=== PATIENT | female | born 1950 | race Caucasian/White ===

== ENCOUNTER 2020-03-09 13:57 | Outpatient (CLI) | payer MEDICARE, SELFPAY ==
--- NOTE | 2020-03-09 14:04 | XR_ITS ---
WS: [id number] SCREENING DEXA SCAN [facility] CLINICAL INFORMATION: OSTEPOROSIS COMPARISON: FINDINGS: The L1-L4 bone mineral density measures 0.934 g/cm2. This corresponds to a T score score of -2.1 and Z score of -0.6. Left femoral neck bone mineral density measures 0.706 g/cm2. This corresponds to a T score of -2.4 an d Z score of -1.1. Right femoral neck bone mineral density measures 0.688 g/cm2. This corresponds to a T score -2.5of an d Z score of -1.3. Mean femoral neck bone mineral density measures 0.697 g/cm2. This corresponds to a T score of -2.5 an d Z score of -1.2. XR/XR DEXA axial skeleton* [id number] IMPRESSION: Osteoporosis at the lower end of the range. Patient's FRAX calculated 10 year probability for major osteoporotic fracture i s 16.9 % and osteoporotic hip fracture is 5.0%.
== END 2020-03-09 13:58 | disposition home or self-care (01) ==
LOC: RADWPI 14:03
PROVIDERS: Family Provider Family Medicine; PCP Family Medicine; Visit Provider Family Medicine
DX: M81.0 Age-related osteoporosis without current pathological fracture (principal)
CPT/HCPCS: 77080

== ENCOUNTER → 2022-10-30 09:05 | Outpatient (BNVA) | payer MEDICARE, SELFPAY | PROVIDERS: Family Provider Family Medicine; PCP Family Medicine; Visit Provider Family Medicine | DX: Z00.00 Encounter for general adult medical examination without abnormal findings (principal); E03.9 Hypothyroidism, unspecified; M81.0 Age-related osteoporosis without current pathological fracture | CPT/HCPCS: 80053; 80061; 84443 ==

== ENCOUNTER 2022-11-20 13:31 | Outpatient (CLI) | payer MEDICARE, SELFPAY ==
--- NOTE | 2022-11-20 13:30 | XR_ITS ---
WS: [id number] DEXA (DUAL ENERGY X-RAY ABSORPTIOMETRY) Bone mineral density was performed using a PulseOn machine. HISTORY: osteoporosis COMPARISON: 04/05/2020 Lumbar spine BMD (L1-L4): 0.923 g/cm2 T score: -2.1 Z score: -0.8 Total hip BMD: Left: 0.691 g/cm2. T score: -2.5 Z score: -1.2 Right: 0.672 g/cm2. T score: -2.7 Z score: -1.3 10 year probability of a major osteoporotic fracture is 17.8%. Compared to the prior study from 04/05/2020. Lumbar spine bone mineral density has decreased by 1.2%. Bilateral hips bone mineral density has decreased by 2.2%. XR/XR DEXA axial skeleton* [id number] IMPRESSION: OSTEOPOROSIS based upon the WHO classification for females. Significant decrease in bone mineral density within the hips since the prior .
== END 2022-11-20 13:32 | disposition home or self-care (01) ==
LOC: RAD 13:38
PROVIDERS: Family Provider Family Medicine; PCP Family Medicine; Visit Provider Family Medicine
DX: M81.0 Age-related osteoporosis without current pathological fracture (principal)
CPT/HCPCS: 77080

== ENCOUNTER → 2023-11-04 09:31 | Outpatient (BNVA) | payer MEDICARE, SELFPAY | PROVIDERS: Family Provider Family Medicine; PCP Family Medicine; Visit Provider Family Medicine | DX: E03.9 Hypothyroidism, unspecified (principal); M81.0 Age-related osteoporosis without current pathological fracture; Z00.00 Encounter for general adult medical examination without abnormal findings; E11.9 Type 2 diabetes mellitus without complications | CPT/HCPCS: 80053; 80061; 84443 ==

== ENCOUNTER → 2024-11-04 08:24 | Outpatient (BNVA) | payer MEDICARE, SELFPAY | PROVIDERS: Family Provider Family Medicine; PCP Family Medicine; Visit Provider Family Medicine | DX: M81.0 Age-related osteoporosis without current pathological fracture (principal); E03.9 Hypothyroidism, unspecified; Z00.00 Encounter for general adult medical examination without abnormal findings | CPT/HCPCS: 80053; 80061; 84443; 85025 ==

== ENCOUNTER 2024-11-23 13:08 | Outpatient (CLI) | payer MEDICARE, SELFPAY ==
--- NOTE | 2024-11-23 13:30 | XR_ITS ---
WS: [id number] SCREENING DEXA SCAN [facility] [employer] CLINICAL INFORMATION: /fu on osteoporosis COMPARISON: 2022 FINDINGS: The L1-L4 bone mineral density measures 0.924 g/cm2. This corresponds to a T score score of -2.1 and Z score of -0.7. Left femoral neck bone mineral density measures 0.727 g/cm2. This corresponds to a T score of -2.2 and Z score of -0.8. Right femoral neck bone mineral density measures 0.668 g/cm2. This corresponds to a T score -2.7of and Z score of -1.3. Mean femoral neck bone mineral density measures 0.697 g/cm2. This corresponds to a T score of -2.5 and Z score of -1.0. XR/XR DEXA axial skeleton* [id number] IMPRESSION: Osteopenia lumbar spine. Osteoporosis femoral necks. Patient's FRAX calculated 10 year probability for major osteoporotic fracture i s 21.0% and osteoporotic hip fracture is 7.9%. Bone marrow density lumbar spine increased 0.1% Bone mineral density femoral necks increased 2.2%
== END 2024-11-23 13:09 | disposition home or self-care (01) ==
PROVIDERS: Family Provider Family Medicine; PCP Family Medicine; Visit Provider Family Medicine
DX: M81.0 Age-related osteoporosis without current pathological fracture (principal); Z00.00 Encounter for general adult medical examination without abnormal findings
CPT/HCPCS: 77080